=== PATIENT | male | born 1955 | race Asian ===

== ENCOUNTER 2017-08-30 03:41 | Emergency (ER) | payer SELFPAY ==
[~2017-08-30] VITALS: Ht 175.3 cm; Wt 80.5 kg
[2017-08-30] MEDS ORDERED: SODIUM CHLORIDE 0.9% 1,000 ML IV ONE (04:36)
[2017-08-30] MEDS: METHYLPREDNISOLONE SOD SUCC 125 MG/2 ML VIAL IV ONE ×2 (04:45→06:30)
[2017-08-30] MEDS ORDERED: DIPHENHYDRAMINE 50MG/ML VIAL IV ONE (04:45)
[2017-08-30 05:04] LABS: BASOPHILS % 0.4 % (0.0-2.0); EOSINOPHILS % 1.2 % (0.0-5.0); HEMATOCRIT. 42.9 % (42.0-52.0); HEMOGLOBIN. 14.2 g/dL (14.0-18.0); LYMPHOCYTES % 16.5 % (20.0-50.0); MEAN CORPUSCULAR HEMOGLOBIN 27.2 pg (28.0-32.0); MEAN CORPUSCULAR VOLUME 82.2 fL (80.0-94.0); MONOCYTES % 12.7 % (2.0-8.0); NEUTROPHILS % 69.2 % (40.0-76.0); PLATELET 244 x1000/uL (130-400); RED BLOOD CELL COUNT 5.22 mill/uL (4.7-6.1); RED CELL DISTRIBUTION WIDTH 14.3 % (11.6-14.6)
[2017-08-30 05:22] LABS: CHLORIDE 105 mEq/L (98-107)
[2017-08-30 05:31] LABS: CARBON DIOXIDE 24 mEq/L (21-32)
[2017-08-30 11:33] VITALS: BP 124/71
== END 2017-08-30 11:44 | disposition home or self-care (01) ==
LOC: ER 04:56
DX: T36.0X5A Adverse effect of penicillins, initial encounter (principal); E11.9 Type 2 diabetes mellitus without complications; E78.00 Pure hypercholesterolemia, unspecified; I47.1 Supraventricular tachycardia; I10 Essential (primary) hypertension; F17.200 Nicotine dependence, unspecified, uncomplicated; Y92.89 Other specified places as the place of occurrence of the external cause; Z88.0 Allergy status to penicillin; Z88.5 Allergy status to narcotic agent; Z90.49 Acquired absence of other specified parts of digestive tract
CPT/HCPCS: 36415; 80053; 82962; 85025; 93005; 96361; 96374; 96375; 99285; J1200; J2930; J7030; Z7610